=== PATIENT | male | born 1990 | race Caucasian/White ===

== ENCOUNTER 2020-01-13 16:22 | Emergency (ER) | payer OTHER, SELFPAY ==
[2020-01-13 16:37] VITALS: BP 143/80; PULSE 61; RESP 16; TEMP 36.3; O2SAT 99
--- NOTE | 2020-01-13 16:41 | ED.GENADULT ---
HPI - General Adult General Chief complaint: Skin/Abscess/Foreign Body Stated complaint: Cyst on back of neck Time Seen by Provider: 01/13/20 16:41 Source: patient Mode of arrival: ambulatory Limitations: no limitations History of Present Illness HPI narrative: 29-year-old male patient presents to the [facility] with complaints of a cyst on the back of the neck that is tender and painful. Patient states it has been flaring up for the past 5 days but states he is having a cyst on the back of his neck for years. Denies any fever, body aches or chills. Patient states that he tried to open it up himself but could not reach it very well. Related Data Allergies Allergy/AdvReac Type Severity Reaction Status Date / Time No Known Allergies Allergy Verified 01/13/20 16:58 Review of Systems Review of Systems: Narrative: CONSTITUTIONAL: Denies fever, chills, or sweats. EYES: Denies visual changes, redness, or discharge. ENT: Denies rhinorrhea, congestion, sore throat, or otalgia. CARDIOVASCULAR: Denies chest pain, palpitations, or edema. RESPIRATORY: Denies cough or dyspnea. GASTROINTESTINAL: Denies abdominal pain, nausea, vomiting, or diarrhea. GENITOURINARY: Denies dysuria or hematuria. SKIN: Denies rash or itching. Positive abscess to the back of the neck x5 days MUSCULOSKELETAL: Denies back pain, joint pain, or myalgia. NEUROLOGIC: Denies headache, numbness, or weakness. PSYCHIATRIC: Denies anxiety or depression. PMFSH Comments At the time of my signature I agree with nursing past medical history, surgical, social, and family history. There is no relevant family history pertinent to the presenting complaint. Exam Narrative: Exam Narrative: GENERAL: Well-appearing, well-nourished, and in no acute distress. HEAD: Normocephalic, atraumatic. EYES: PERRLA and EOMI. ENT: Nares clear, no rhinorrhea or epistaxis. Mucous membranes moist. NECK: Supple. No lymphadenopathy CHEST: Clear to auscultation. No respiratory distress. HEART: Regular rate and rhythm. No murmur heard. Normal peripheral pulses. ABDOMEN: Soft, nontender, nondistended, normal active bowel sounds. EXTREMITIES: Normal range of motion. No edema. SKIN: Warm, dry, no rash. Patient has approximately 4 x 2 cm infected abscess/cyst on the posterior neck. There is some erythema and tenderness noted. NEURO: No focal deficits. Alert and oriented x3. Course Vital Signs Vital signs: Vital Signs Temperature 36.3 C L 01/13/20 16:37 Pulse Rate 61 01/13/20 16:37 Respiratory Rate 16 01/13/20 16:37 Blood Pressure 143/80 H 01/13/20 16:37 Pulse Oximetry 99 01/13/20 16:37 Temperature 36.3 C L 01/13/20 16:37 Pulse Rate 61 01/13/20 16:37 Respiratory Rate 16 01/13/20 16:37 Blood Pressure 143/80 H 01/13/20 16:37 Pulse Oximetry 99 01/13/20 16:37 Vital signs reviewed The patient has been informed that they may have pre-hypertension or Hypertension based on a BP reading in the department. I recommend that the patient call the primary care provider listed on their discharge instructions or a physician of their choice this week to arrange follow up for further evaluation of possible pre-hypertension or Hypertension Procedures Abscess I/D neck: Date of Incision: 01/13/20 Time of Incision: 16:55 Sedation/analgesia: none Local Anesthetic: lidocaine 1% Amount of anesthesia used (mL): 8 Technique: incised with #11 blade Irrigation: Yes Packing used?: none I&D Results: Pus and Blood Complications: pain Abcess I&D Additional Comments: The procedure was explained and verbal consent is obtained. The wound was anesthetized with 8ml of 1% lidocaine with good anesthesia. Sterile drape and prep are done. The fluctuant center was incised with #11 blade scalpel. A small amount of pus was expressed or removed. The wound was probed for loculated area and irrigated with normal saline. Wound was left open. Dres
== END 2020-01-13 17:01 | disposition home or self-care (01) ==
PROVIDERS: Emergency Provider Nurse Practitioner Family; PCP Internal Medicine
DX: L02.11 Cutaneous abscess of neck (principal)
CPT/HCPCS: 10060; 87070; 87075; 87205; 99213; G0463

== ENCOUNTER 2020-09-13 08:25 | Emergency (ER) | payer OTHER, SELFPAY ==
[2020-09-13 08:35] VITALS: BP 130/83; PULSE 84; RESP 16; TEMP 35.6; O2SAT 99
--- NOTE | 2020-09-13 09:23 | ED.BACK ---
HPI - Back Pain/Injury General Chief Complaint: Back Pain/Injury Stated Complaint: Back Pain Time Seen by Provider: 09/13/20 09:14 Source: patient and RN notes reviewed Mode of arrival: ambulatory Limitations: no limitations History of Present Illness HPI Narrative: Patient presents today complaining of a low back pain x2 days. 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 Yesterday, the pain worsened while he was working. Denies numbness or tingling in the legs or genitals. Denies any loss of bowel or bladder control. Pain occasionally radiates to the right buttock. Currently rates his pain 2/10 at rest in certain positions, but increases to 5?6/10 with movement and ambulation. MD elicited complaint: back pain and back injury Related Data Allergies Allergy/AdvReac Type Severity Reaction Status Date / Time No Known Allergies Allergy Verified 01/13/20 16:58 Review of Systems Review of Systems: CONSTITUTIONAL: Denies body aches, fever, chills, or sweats. EYES: Denies visual changes, redness, or discharge. ENT: Denies rhinorrhea, congestion, sore throat, or otalgia. CARDIOVASCULAR: Denies chest pain, palpitations, or edema. RESPIRATORY: Denies cough or dyspnea. GASTROINTESTINAL: Denies abdominal pain, nausea, vomiting, or diarrhea. GENITOURINARY: Denies dysuria or hematuria. SKIN: Denies rash, itching, or wounds. MUSCULOSKELETAL: Denies joint pain, or myalgia.+ Back pain NEUROLOGIC: Denies headache, numbness, tingling, or weakness. PSYCH: Denies depression or anxiety. PMFSH Comments At time of signature, I have reviewed and agree with nursing past medical, surgical, social and family history unless otherwise noted. Please see nursing chart for further information. There is no relevant family history pertinent to the presenting complaint Exam Narrative: GENERAL: Well-appearing, well-nourished, and in moderate pain distress. HEAD: Normocephalic, atraumatic. EYES: EOMI. No redness or drainage. Conjunctivae normal. ENT: Mucous membranes pink and moist. NECK: Normal AROM. Supple. No lymphadenopathy. CHEST: No respiratory distress. MUSCULOSKELETAL: No bony tenderness of the thoracic or lumbar spine. Mild tenderness to the left lower lumbar paraspinal muscles. Palpable muscle spasm and tenderness to the right lower lumbar paraspinal muscles and into the right buttock. Distal sensation intact. Saddle sensation intact. Capillary refill normal. Foot push and pulls equal and strong. Patellar reflexes normal and equal bilaterally. EXTREMITIES: Normal range of motion. No edema. SKIN: Warm, dry, no rash. Capillary refill normal. Normal skin turgor. NEURO: No focal deficits. Alert and oriented x3. Gait steady. PSYCH: Normal affect. No signs of depression or anxiety. Course Vital Signs Vital signs: Vital Signs Temperature 96.0 F L 09/13/20 08:35 Pulse Rate 84 09/13/20 08:35 Respiratory Rate 16 09/13/20 08:35 Blood Pressure 130/83 09/13/20 08:35 Pulse Oximetry 99 09/13/20 08:35 Temperature 96.0 F L 09/13/20 08:35 Pulse Rate 84 09/13/20 08:35 Respiratory Rate 16 09/13/20 08:35 Blood Pressure 130/83 09/13/20 08:35 Pulse Oximetry 99 09/13/20 08:35 Reviewed. Pt has been instructed to follow up with his PCP regarding his elevated blood pressure today. MDM - Back Pain/Injury Differential Diagnosis Differential diagnosis: Likely lumbar radiculopathy, sciatica and strain of lumbar region Critical Care Time Critical Care Time Critical Care Time: No Discharge Plan Discharge Clinical Impression: Strain of lumbar region Qualifiers: Encounter type: initial encounter Qualified Code(s): S39.012A - Strain of muscle, fascia and tendon of lower back, initial encounter Patient Disposition: Home, Self-Care Condition: Stable Instructions: Low Back Strain (ED) Additional Instructions: Please take all medications as prescribed. Do not drive within 8 hours of ta
== END 2020-09-13 10:04 | disposition home or self-care (01) ==
PROVIDERS: Emergency Provider Nurse Practitioner
DX: S39.012A Strain of muscle, fascia and tendon of lower back, initial encounter (principal); X50.0XXA Overexertion from strenuous movement or load, initial encounter; Y99.0 Civilian activity done for income or pay
CPT/HCPCS: 99213; G0463